=== PATIENT | female | born 1985 | race African-American/Black ===

== ENCOUNTER 2023-07-24 09:52 | Day surgery (SDC) | payer OTHER ==
[2023-07-17 11:53] VITALS: BMI 28.1
[2023-07-24 11:37] VITALS: TEMP 97.5
[2023-07-24 12:14] VITALS: BP 111/64; PULSE 78; RESP 18
== END 2023-07-24 12:17 | disposition home or self-care (01) ==
LOC: FASU-ENDO 09:52
PROVIDERS: ATTEND Internal Medicine Gastroenterology
PROC: 0DJD8ZZ Inspection of Lower Intestinal Tract, Via Natural or Artificial Opening Endoscopic (ICD-10-PCS; principal; 2023-07-24 11:13)
DX: K64.1 Second degree hemorrhoids (principal); K64.8 Other hemorrhoids; D50.9 Iron deficiency anemia, unspecified
CPT/HCPCS: 81025